=== PATIENT | female | born 1995 | race Caucasian/White ===

== ENCOUNTER 2018-09-09 05:13 | Emergency (ER) | payer SELFPAY ==
[2018-09-09 05:20] VITALS: BP 114/69; PULSE 110; RESP 15; TEMP 36.1
[2018-09-09 05:24] VITALS: RESP 15
--- NOTE | 2018-09-09 05:24 | ED.GENADUL_ITS ---
Discharge Plan Disposition Patient Disposition: HOME Condition: Good Discharge Details Chief Complaint: OD/Poison Clinical Impression: Accidental heroin overdose, Alcohol intoxication Primary Care Provider: Willy Downs ED Provider: Gage Jarquin Discharge Instructions Additional Instructions: Avoid alcohol and drugs in the future. You were near from respiratory arrest secondary to opiate overdose. If you feel you have a substance abuse problem you can find help by calling 211 or following up at [facility]. Return to ED for problems. Referrals: [facility] [Provider Group] Medical Decision Making Patient unresponsive with agonal respirations in the car. Received Narcan, placed on stretcher, brought into ED. In the ED she woke up and was able to start talking to us. IV was established and laboratory studies obtained. Saline ordered. EKG obtained and shows sinus tachycardia. Patient denies trying to harm self. She had been clean for about a month and used 2 bags of heroin tonight. She also used gabapentin and alcohol. Will observe in the ED for period of time prior to discharge. Laboratory studies are unremarkable. Alcohol level around 80. She remained in the department for another 45 minutes and has remained awake and alert. She was requesting discharge because she needs to go to work. We have discussed how close she was to . She has no reasoning for why she started using opiates again today. Recommend avoiding drugs and alcohol in the future. Lab Data Lab results reviewed: Yes I reviewed the patient's lab results. ECG Data Attestation: I personally reviewed and interpreted this ECG (s) as follows: Prior ECG tracings: not available for review Interpretation: Sinus tachycardia at 117 with normal intervals and axis. No acute ST changes. HPI General Date/Time Provider Initiated Documentation: 09/09/18 05:18 . Limitations to Documentation: altered mental status . Information obtained by: patient . HPI Narrative: Patient brought by friend to the ED unresponsive. Patient was in the vehicle in our parking lot unresponsive with agonal respirations. She was found to have a pulse. Stretcher, BVM, Narcan was brought out. Patient received 2 mg of intranasal Narcan. She was removed from the car and put on stretcher. She was brought into the ED. Once in the ED the Narcan appeared to have taken effect. She was breathing on her own and began to speak to us. She reports doing 2 bags of heroin tonight. She reports being clean for a month prior to that. She also used gabapentin and alcohol tonight. This was recreational use. She was not trying to harm herself. Related Data Allergies Allergy/AdvReac Type Severity Reaction Status Date / Time No Known Allergies Allergy Unverified 04/12/16 10:54 Review of Systems Review of Systems Unobtainable due to mental status PFSH Family History Mother Suicide Father COPD (chronic obstructive pulmonary disease) Medical History Substance abuse (Acute) Social History Smoking/Tobacco Use Status: Never alcohol intake: current substance use type: heroin Surgical History Tonsillectomy Exam Const General: no acute distress Nutritional Appearance: obese Orientation: awake HENMT Head: normocephalic and atraumatic Eyes Pupils: PERRL (Pupils small but reactive after Narcan) Neck Neck: trachea midline and supple Resp Auscultation: wheezes (scattered) Cardio Rate: tachycardic Rhythm: regular rhythm Heart Sounds: S1 normal and S2 normal GI Palpation: soft and nontender Skin General skin exam: no rashes or lesions noted Neuro General: awake, oriented x3, no focal motor deficits and CN's II-XI intact bilaterally Extrem General: normal to inspection and full ROM Critical Care Time Critical Care Time: Yes Total Critical Care Time: 40 Attestation: Resuscitation from respiratory arrest due to opiates
[2018-09-09 05:35] LABS: Abs Immature Grans 0.04 k/cumm (0.0-0.09); Absolute Basophil Count 0.03 k/cumm (0.0-0.2); Absolute Lymphocyte Count 3.67 k/cumm (1.2-3.4); Absolute Monocyte Count 0.48 k/cumm (0.11-0.7); Absolute Neutrophil Count 5.54 k/cumm (1.2-6.7); Basophils % 0.3; HCT 47.8 % (36.0-46.0); HGB 15.1 g/dL (12.0-15.5); Immature Grans % 0.4; Lymphocytes % 36.8; Mean Corp. HGB Concentration 31.6 g/dL (32.0-36.0); Mean Corpuscular Hemoglobin 27.5 pg (27.0-33.0); Mean Corpuscular Volume 87.1 fL (80-95); Monocytes % 4.8; Neutrophils % 55.7; Platelet Count 373 x1000/uL (130-400); RBC 5.49 m/cumm (4.00-5.20); RBC Distribution Width 15.3 % (11.7-14.6); White Blood Cell Count 9.96 k/cumm (4.4-10.8)
[2018-09-09] MEDS: Normal Saline Flush 10 ML SYR IVP (05:43)
--- NOTE | 2018-09-09 05:46 | NUR.NOTE ---
Nursing Note: Pt states she is refusing any further medical interventions and wants to leave. aware and has discussed this with pt. Pt has agreed to stay for evaluation until 0630 if she is able to IV d/c'd. has agreed to this. Pt remains in room, alert and oriented at this time. Pt states she has to leave because she has to go to work.
[2018-09-09 05:47] LABS: ALT 25 U/L (12-78); AST 13 U/L (15-37); Albumin 3.7 g/dL (3.4-5.0); Alkaline Phosphatase 74 U/L (46-116); Anion Gap 10.2 mmol/L (3-11); BUN 5 mg/dL (7-18); Bilirubin, Total 0.5 mg/dL (0.2-1.0); CO2 26.8 mmol/L (21.0-32.0); CREATININE 0.81 mg/dL (0.55-1.02); Calcium 8.5 mg/dL (8.5-10.1); Chloride 106 mmol/L (98-107); ETHANOL BLOOD 83.2 mg/dL (<3); Glucose 150 mg/dL (70-100); Potassium 4.4 mmol/L (3.5-5.1); Sodium 143 mmol/L (136-145)
[2018-09-09 05:59] LABS: HCG Qual (Serum) Negative
--- NOTE | 2018-09-09 06:04 | NUR.NOTE ---
Nursing Note: Pt asked for cough drop. This nurse replied that we did not have cough drop without being ordered. Pt replied bitch, this is hospital, I know you got a cough drop up in this place. Pt asked not to use profanity towards this nurse. MD aware of pt request.
== END 2018-09-09 06:40 | disposition home or self-care (01) ==
PROVIDERS: Emergency Provider Emergency Medicine; PCP Pediatrics
DX: T40.1X1A Poisoning by heroin, accidental (unintentional), initial encounter (principal); F10.129 Alcohol abuse with intoxication, unspecified; Y90.4 Blood alcohol level of 80-99 mg/100 ml
CPT/HCPCS: 36415; 80053; 81025; 93005; 99291; 80320; 84703; 85025; 93010; J2310